=== PATIENT | male | born 1960 | race Caucasian/White ===

== ENCOUNTER 2020-03-08 09:19 | Emergency (ER) | payer BC, SELFPAY ==
[2020-03-08 09:24] VITALS: BP 113/87; PULSE 88; RESP 18; TEMP 36.8; O2SAT 98; BMI 35.7
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
[2020-03-08 10:34] LABS: Basophils % 0.5 %; Eosinophils # 0.1 10^3/uL (0.0-0.8); Eosinophils % 1.5 %; Hematocrit 39.5 % (42.0-52.0); Hemoglobin 12.9 g/dL (11.7-16.6); Lymphocytes # 1.8 10^3/uL (0.8-4.8); Lymphocytes % 27.7 %; Mean Corpuscular HGB Conc 32.7 g/dL (30.0-36.0); Mean Corpuscular Hemoglobin 30.3 pg (28.0-34.0); Mean Corpuscular Volume 92.7 fL (80-94); Mean Platelet Volume 9.5 fL (7.4-10.4); Monocytes # 0.5 10^3/uL (0.2-0.9); Monocytes % 7.6 %; Neutrophils # 4.11 10^3/uL (1.8-7.7); Neutrophils % 62.4 %; Nucleated Red Blood Cells % 0 %; Platelet Count 220 10^3/cmm (130-400); Red Blood Count 4.26 10^6/uL (4.1-5.3); Red Cell Distribution Width 12.6 % (12.1-15.1); White Blood Count 6.6 10^3/uL (4.0-10.0)
[2020-03-08 10:53] LABS: Alanine Aminotransferase 20 U/L (0-41); Alkaline Phosphatase 78 IU/L (40-130); Anion Gap 11.8 (5-19); Aspartate Amino Transferase 22 U/L (0-40); Blood Urea Nitrogen 13 mg/dL (8-23); Calcium 9.1 mg/dL (8.5-10.5); Carbon Dioxide 27 mmol/L (22-29); Chloride 101 mmol/L (98-107); Glomerular Filtration Rate 68.3 mL/min (90-130); Glucose 161 mg/dL (65-115); Osmolality Calculated 282 mOsm/kg (285-295); Potassium 3.8 mmol/L (3.5-5.1); Sodium 136 mmol/L (136-145); Total Bilirubin 0.4 mg/dL (0.15-1.2)
[2020-03-08 10:56] LABS: Add Urine Microscopic? NO
[2020-03-08 11:16] LABS: Bilirubin Urine Neg (NEGATIVE); Blood Urine Neg (Negative); Glucose Urine UA Norm (Normal); Ketones Urine Negative (Negative); Leukocyte Esterase Urine Negative (Negative); Nitrate Urine Negative (Negative); Protein Urine Neg (Negative); Urine Appearance Clear (CLEAR); Urine Color Yellow (Yellow); Urobilinogen Urine Norm (Negative); pH Urine 5 (5-7)
[2020-03-08] MEDS: iohexol 300 mg/mL 100 mL Btl IV (11:36)
[2020-03-08 13:22] VITALS: BP 145/72; PULSE 78; RESP 18; O2SAT 98
== END 2020-03-08 13:23 | disposition home or self-care (01) ==
PROVIDERS: Emergency Provider Nurse Practitioner Family; PCP Family Medicine
DX: S39.011A Strain of muscle, fascia and tendon of abdomen, initial encounter (principal); S39.013A Strain of muscle, fascia and tendon of pelvis, initial encounter; Z79.82 Long term (current) use of aspirin; I10 Essential (primary) hypertension; X50.9XXA Other and unspecified overexertion or strenuous movements or postures, initial encounter; Y93.16 Activity, rowing, canoeing, kayaking, rafting and tubing
CPT/HCPCS: 12345; 36415; 74177; 80053; 81003; 85025; 99283; Q9967

== ENCOUNTER 2021-08-14 08:16 | Emergency (ER) | payer BC, MEDICAID, SELFPAY ==
[2021-08-14] VITALS (18 sets, daily range): BP systolic 95–124; BP diastolic 50–86; PULSE 98; RESP 15–16; TEMP 37.7; O2SAT 94–98; BMI 33.5
--- NOTE | 2021-08-14 10:09 | ED_ITS ---
HPI - Nausea/Vomiting/Diarrhea General: Chief complaint: Nausea/Vomiting/Diarrhea Stated complaint: fevor, cant eat, nausia, bp is low Time Seen by Provider: 08/14/21 11:46 History of Present Illness: Patient's had a fever for the last 7 days. Did test at home for Covid 2 days ago and it was negative. Patient recently treated for epididymitis. Patient said he had had some tenderness in his testicle but it really was not bad but they went and put him on antibiotics. Patient said he has been having nausea and vomiting since placed on antibiotics. Not really been able to eat for the last few days not really drinking much. says his blood pressure has been down the last 3 days and he has not actually taken his blood pressure medication because of that. States he does not feel good. Denies any abdominal pain except from the dry heaves where his muscles are sore denies any cough shortness of breath. MD elicited complaint: nausea, vomiting and other (Fever) Pertinent past history: other (Recently treated for epididymitis) Onset (ago): day(s) Associated nausea: Yes Associated abdominal pain: Yes Location of pain: RLQ Associated symtoms: Reports nausea; Denies chest pain or headache(s) Review of Systems Const: Reports: fever(s); Denies: chills or body aches Eyes: Denies: eye discomfort ENMT: Denies: throat pain Card: Reports: dyspnea on exertion; Denies: chest pain Resp: Denies: dyspnea GI: Reports: abdominal pain, nausea and vomiting Skin/Breast: Denies: rash Neuro: Denies: headache(s) Psych: Denies: depression or suicidal ideation [facility] ED PFSH: Medical History (Updated 08/14/21 @ 14:19 by VIKA Bryson) Hypertension Trigeminal neuralgia Family History Mother Hypertension Father Cancer Denies family history of Diabetes CAD (coronary artery disease) Clotting disorder Dementia Hyperlipidemia Psychiatric illness Chronic kidney disease (CKD) Suicide Anesthesia complication Bleeding disorder Family history of premature coronary artery disease Lung disease Stroke Social History Smoking and tobacco status: never smoked Second hand smoke exposure: No Alcohol intake: never Physical Exam Const: COMMON NORMALS: no acute distress, patient oriented x3 and alert HENMT: COMMON NORMALS: normocephalic HEAD & SCALP: normocephalic Eye: COMMON NORMALS: EOMs intact bilaterally Neck/C-Spine: COMMON NORMALS: no JVD Resp: COMMON NORMALS: normal respiratory effort and No use of accessory muscles Cardio: COMMON NORMALS: no JVD GI: INSPECTION: Yes normal to inspection AUSCULTATION: Yes Hypoactive bowel sounds present PALPATION: Yes Tenderness to palpation present (GI) Details: RLQ PERCUSSION: tympanic to percussion Extremity: COMMON NORMALS: normal to inspection and full ROM Neuro: COMMON NORMALS: patient oriented x3 SENSORIUM/ORIENTATION: Yes alert Psych: COMMON NORMALS: mental status grossly normal Skin: COMMON NORMALS: no rashes or lesions noted GENERAL SKIN EXAM: no rashes or lesions noted Course Vital Signs: Vital signs: Vital Signs Temperature 100 F H 08/14/21 08:29 Pulse Rate 98 08/14/21 08:29 Respiratory Rate 15 08/14/21 08:29 Blood Pressure 124/86 08/14/21 08:29 Pulse Oximetry 95 08/14/21 08:29 MDM - Nausea/Vomiting/Diarrhea Medical Decision Making Patient diagnosed duodenitis and hyponatremia. Also had some bili in his urine. White count was normal. Creatinine was slightly high at 1.4. Patient was given IV fluids here and felt much better. Discussed case with Dr. Gutierrez and went over the labs and radiology studies. Dr. Gutierrez suggested that go ahead and give him salt tablet because of low sodium and follow-up with his provider this coming week and have repeat labs done. Patient referred Dr. Abrams for follow-up this coming week. Lab Data : 08/14/21 12:03 08/14/21 12:03 Radiology Impressions Abdomen/Pelvis CT 08/14/21 11:49 IMPRESSION: 1. The proximal duodenum appears mildly thickened and edematous suspicious for duodenitis. There is also fatty infiltration of the wall of the distal gastric antrum/pylorus suggesting recurring inflammation in this region. 2. Nonobstructing stones noted within both kidneys measuring up to 3 mm in size within the left kidney. Laboratory Results WBC 4.7 10^3/uL (4.0-10.0) 08/14/21 12:03 RBC 4.74 10^6/uL (4.1-5.3) 08/14/21 12:03 Hgb 14.5 g/dL (11.7-16.6) 08/14/21 12:03 Hct 41.6 % (42.0-52.0) L 08/14/21 12:03 MCV 87.8 fl (80-94) 08/14/21 12:03 MCH 30.6 pg (28.0-34.0) 08/14/21 12:03 MCHC 34.9 g/dL (30.0-36.0) 08/14/21 12:03 RDW 12.4 % (12.1-15.1) 08/14/21 12:03 Plt Count 214 10^3/cmm (130-400) 08/14/21 12:03 MPV 9.0 fL (7.4-10.4) 08/14/21 12:03 Neut % (Auto) 74.3 % 08/14/21 12:03 Lymph % (Auto) 15.1 % 08/14/21 12:03 [place] % (Auto) 8.7 % 08/14/21 12:03 Eos % (Auto) 0.4 % 08/14/21 12:03 Baso % (Auto) 0.4 % 08/14/21 12:03 Neut # (Auto) 3.49 10^3/uL (1.8-7.7) 08/14/21 12:03 Lymph # (Auto) 0.7 10^3/uL (0.8-4.8) L 08/14/21 12:03 [place] # (Auto) 0.4 10^3/uL (0.2-0.9) 08/14/21 12:03 Eos # (Auto) 0.0 10^3/uL (0.0-0.8) 08/14/21 12:03 Baso # (Auto) 0.0 10^3/uL (0.0-0.1) 08/14/21 12:03 Nucleated RBC % (auto) 0 % 08/14/21 12:03 Nucleated RBCs # 0.0 /100WBC 08/14/21 12:03 Sodium 122 mmol/L (136-145) L 08/14/21 12:03 Potassium 4.1 mmol/L (3.5-5.1) 08/14/21 12:03 Chloride 87 mmol/L (98-107) L 08/14/21 12:03 Carbon Dioxide 22 mmol/L (22-29) 08/14/21 12:03 Anion Gap 17.1 (5-19) 08/14/21 12:03 BUN 18 mg/dL (8-23) 08/14/21 12:03 Creatinine 1.4 mg/dL (0.7-1.2) H 08/14/21 12:03 GFR Calculation 51.5 mL/min (90-130) L 08/14/21 12:03 Glucose 114 mg/dL (65-115) 08/14/21 12:03 Calculated Osmolality 257 mOsm/kg (285-295) L 08/14/21 12:03 Calcium 8.4 mg/dL (8.5-10.5) L 08/14/21 12:03 Total Bilirubin 0.5 mg/dL (0.15-1.2) 08/14/21 12:03 AST 40 U/L (0-40) 08/14/21 12:03 ALT 49 U/L (0-41) H 08/14/21 12:03 Alkaline Phosphatase 71 IU/L (40-130) 08/14/21 12:03 Total Protein 7.3 g/dL (6.6-8.7) 08/14/21 12:03 Albumin 3.8 g/dL (3.5-5.2) 08/14/21 12:03 Globulin 3.5 g/dL (1.3-4.6) 08/14/21 12:03 Lipase 53 U/L (13-60) 08/14/21 12:03 Urine Color Yellow (Yellow) 08/14/21 13:43 Urine Appearance Clear (CLEAR) 08/14/21 13:43 Urine pH 5 (5-7) 08/14/21 13:43 Ur Specific [place] 1.015 (1.005-1.030) 08/14/21 13:43 Urine Protein Neg (Negative) 08/14/21 13:43 Urine Glucose (UA) Norm (Normal) 08/14/21 13:43 Urine Ketones 1+ (Negative) H 08/14/21 13:43 Urine Blood 2+ (Negative) H 08/14/21 13:43 Urine Nitrate Negative (Negative) 08/14/21 13:43 Urine Bilirubin 1+ (Negative) H 08/14/21 13:43 Urine Urobilinogen 1 mg/dL (Negative) H 08/14/21 13:43 Ur Leukocyte Esterase Negative (Negative) 08/14/21 13:43 Urine RBC Rare /hpf (0-2) 08/14/21 13:43 Urine WBC 0-4 /hpf (0-5) H 08/14/21 13:43 Ur Squamous Epith Cells None /hpf (0-5) 08/14/21 13:43 Amorphous Sediment Not Reportable 08/14/21 13:43 Urine Bacteria 1+ /hpf (NONE) H 08/14/21 13:43 Urine Mucus 2+ /hpf 08/14/21 13:43 SARS-CoV-2 Ag (Rapid) Negative (Negative) 08/14/21 12:33 Discharge Plan Discharge Patient Disposition: Home Clinical Impression: Duodenitis, Acute hyponatremia Condition: Stable Prescriptions: New sodium chloride 1 gram tablet 1,000 mg PO DAILY Qty: 7 0RF promethazine 12.5 mg tablet 12.5 mg PO TID PRN (Reason: nausea and vomiting) Qty: 10 0RF Rx Instructions: 3 doses during day; last dose no later than 4 hr before bedtime Prilosec OTC 20 mg tablet,delayed release (DR/EC) 20 mg PO DAILY Qty: 14 0RF No Action allopurinol 100 mg tablet 100 mg PO ONCE 0RF lisinopril 20 mg tablet 20 mg PO DAILY 0RF Aspirin Low Dose 81 mg Tablet,Delayed Release (Dr/Ec) 81 mg PO DAILY 0RF hydrochlorothiazide 12.5 mg capsule 12.5 mg PO DAILY 0RF oxycodone-acetaminophen 5-325 mg tablet 1 tab PO Q6H PRN (Reason: pain) Qty: 14 0RF Discharge Orders: Discharge ED (Routine); Ordered 08/14/21 Ordered By: Elliott Strange Referrals: Toney Abrams MD [Primary Care Provider] - Discharge Diet: As Directed Discharge Activity: Resume usual activity Patient Instructions: Hyponatremia (ED), Duodenitis (ED) Activity Restrictions/Additional Instructions: Follow-up with medical provider as directed. Take medications as prescribed. Return to the ER or your medical provider if condition worsens. Please read and understand discharge instructions. If any questions ask please. Make sure you follow-up with Dr. Abrams this week and have repeat labs done which include CBC, CMP and urinalysis. Coding Level of Care Code ED Rfid Strategist for Chg Fwd Exam Comprehensive
--- NOTE | 2021-08-14 11:49 | CTR_ITS ---
PROCEDURE INFORMATION: Exam: CT Abdomen And Pelvis With Contrast Exam date and time: 08/14/2021 11:49 AM Age: 60 years old Clinical indication: Abdominal pain; Localized; Right lower quadrant (rlq); Additional info: Rlq pain, n/v TECHNIQUE: Imaging protocol: Computed tomography of the abdomen and pelvis with contrast. Radiation optimization: All CT scans at this facility use at least one of these dose optimization techniques: automated exposure control; mA and/or kV adjustment per patient size (includes targeted exams where dose is matched to clinical indication); or iterative reconstruction. Contrast material: VISI 320; Contrast volume: 95 ml; Contrast route: INTRAVENOUS (IV); COMPARISON: CT abdomen pelvis w con* [id number] 03/08/2020 11:23 AM RADIATION DOSE METRICS: Total DLP (mGy-cm): 1839.81 FINDINGS: Liver: Normal. No mass. Gallbladder and bile ducts: Normal. No calcified stones. No ductal dilation. Pancreas: Normal. No ductal dilation. Spleen: Normal. No splenomegaly. Adrenal glands: Normal. No mass. Kidneys and ureters: 3 mm nonobstructing stone noted in the inferior pole of the left kidney. Additional punctate nonobstructing stone in the interpolar region of the left kidney. There are a couple punctate nonobstructing stones also noted in the interpolar region of the right kidney. No hydronephrosis. Stomach and bowel: The wall of the 2nd portion the duodenum appears slightly edematous and thickened with some conspicuous mucosal hyperenhancement in this region. In addition, there is fatty infiltration of the calderon of the distal gastric antrum/pylorus which is suggestive of recurring inflammation in this region. Colonic diverticulosis centered within the sigmoid and descending colon without findings of acute diverticulitis. No obstruction. Appendix: No evidence of appendicitis. Intraperitoneal space: Unremarkable. No free air. No significant fluid collection. Vasculature: Unremarkable. No abdominal aortic aneurysm. Lymph nodes: Unremarkable. No enlarged lymph nodes. Urinary bladder: Unremarkable as visualized. Reproductive: Unremarkable as visualized. Bones/joints: No acute fracture. Degenerative disc disease noted at L4-L5 and L5-S1. Soft tissues: Unremarkable. CT/CT abdomen pelvis w con* [id number] IMPRESSION: 1. The proximal duodenum appears mildly thickened and edematous suspicious for duodenitis. There is also fatty infiltration of the wall of the distal gastric antrum/pylorus suggesting recurring inflammation in this region. 2. Nonobstructing stones noted within both kidneys measuring up to 3 mm in size within the left kidney.
[2021-08-14 12:11] LABS: Basophils % 0.4 %; Eosinophils % 0.4 %; Hematocrit 41.6 % (42.0-52.0); Hemoglobin 14.5 g/dL (11.7-16.6); Lymphocytes # 0.7 10^3/uL (0.8-4.8); Lymphocytes % 15.1 %; Mean Corpuscular HGB Conc 34.9 g/dL (30.0-36.0); Mean Corpuscular Hemoglobin 30.6 pg (28.0-34.0); Mean Corpuscular Volume 87.8 fl (80-94); Monocytes # 0.4 10^3/uL (0.2-0.9); Monocytes % 8.7 %; Neutrophils # 3.49 10^3/uL (1.8-7.7); Neutrophils % 74.3 %; Nucleated Red Blood Cells % 0 %; Platelet Count 214 10^3/cmm (130-400); Red Blood Count 4.74 10^6/uL (4.1-5.3); Red Cell Distribution Width 12.4 % (12.1-15.1); White Blood Count 4.7 10^3/uL (4.0-10.0)
[2021-08-14] MEDS: sodium chloride 0.9% 1,000 ML 999 ML IV (12:17)
[2021-08-14] MEDS: acetaminophen 500 mg Tablet 1000 MG PO (12:17)
--- NOTE | 2021-08-14 12:19 | PC.NURSE ---
pt states he was started on a medication 10 days ago and has been nausated and vomiting since he started the medication. has seen pcp. pcp said everything was fine.
[2021-08-14 12:39] LABS: Alanine Aminotransferase 49 U/L (0-41); Albumin Level 3.8 g/dL (3.5-5.2); Alkaline Phosphatase 71 IU/L (40-130); Anion Gap 17.1 (5-19); Aspartate Amino Transferase 40 U/L (0-40); Blood Urea Nitrogen 18 mg/dL (8-23); Calcium 8.4 mg/dL (8.5-10.5); Carbon Dioxide 22 mmol/L (22-29); Chloride 87 mmol/L (98-107); Globulin 3.5 g/dL (1.3-4.6); Glomerular Filtration Rate 51.5 mL/min (90-130); Glucose 114 mg/dL (65-115); Lipase 53 U/L (13-60); Osmolality Calculated 257 mOsm/kg (285-295); Potassium 4.1 mmol/L (3.5-5.1); Sodium 122 mmol/L (136-145); Total Bilirubin 0.5 mg/dL (0.15-1.2); Total Protein 7.3 g/dL (6.6-8.7)
[2021-08-14 13:01] LABS: SARS Covid-2 Antigen Negative (Negative)
[2021-08-14] MEDS: iodixanol 320 mg/mL 100mL Btl IV (13:13)
[2021-08-14 14:07] LABS: Blood Urine 2+ (Negative); Glucose Urine UA Norm (Normal); Ketones Urine 1+ (Negative); Protein Urine Neg (Negative); Specific Gravity, Urine 1.015 (1.005-1.030); Urine Appearance Clear (CLEAR); Urine Color Yellow (Yellow); pH Urine 5 (5-7)
[2021-08-14 14:08] LABS: Add Urine Culture? No; Add Urine Microscopic? YES; Bacteria Urine 1+ /hpf; Bilirubin Urine 1+ (Negative); Leukocyte Esterase Urine Negative (Negative); Mucus Urine 2+ /hpf; Nitrate Urine Negative (Negative); RBC Urine RARE /hpf (0-2); Urobilinogen Urine 1 mg/dL (Negative); WBC Urine 0-4 /hpf (0-5)
== END 2021-08-14 14:59 | disposition home or self-care (01) ==
PROVIDERS: Emergency Provider Nurse Practitioner Family; PCP Family Medicine
DX: K29.80 Duodenitis without bleeding (principal); E87.1 Hypo-osmolality and hyponatremia; Z79.82 Long term (current) use of aspirin; I10 Essential (primary) hypertension
CPT/HCPCS: 36415; 74177; 80053; 81001; 83690; 85025; 87426; 96360; 99284; J7030; Q9967

== ENCOUNTER → 2022-03-09 09:36 | Outpatient (BNVA) | payer BC, MEDICAID, SELFPAY | PROVIDERS: PCP Family Medicine; Referring Provider Dermatology; Visit Provider Podiatrist Foot & Ankle Surgery | DX: M77.41 Metatarsalgia, right foot (principal); M77.42 Metatarsalgia, left foot; G62.9 Polyneuropathy, unspecified | CPT/HCPCS: 99213; 99214 ==

== ENCOUNTER 2022-08-18 12:26 | Inpatient (IN) | payer BC, SELFPAY ==
[2022-08-18] VITALS (8 sets, daily range): BP systolic 80–111; BP diastolic 45–70; PULSE 79–101; RESP 14–18; TEMP 36.9–38; O2SAT 93–98; BMI 34.9
--- NOTE | 2022-08-18 13:19 | XR_ITS ---
WS: [id number] Portable AP upright chest, 08/18/2022 Clinical Data: syncope Comparison: None. Findings: No nodules, masses or effusions are seen. The heart is normal. The pulmonary vascularity is not increased. No pneumonia or pneumothorax is seen. XR/XR chest 1V portable [id number] Impression: Negative chest.
--- NOTE | 2022-08-18 13:20 | ECG_ITS ---
[facility] Test Date: 2022-08-18 Pat Name: David Stephen Department: Room: Gender: Male [employer]: : 1960 Requested By: Sami Fleming Order Number: [id number] Sharon MD: Nahomi Rice M.D. Measurements Intervals [place] Rate: 91 P: 5 NC: 140 QRS: 75 QRSD: 95 T: 41 QT: 334 QTc: 412 Interpretive Statements SINUS RHYTHM No previous ECG available for comparison Electronically Signed On 08-18-2022 21:02:01 PAYMENT PROCESSOR by Nahomi Rice M.D. [id number]
--- NOTE | 2022-08-18 13:21 | W.ED.NAVMDI ---
HPI - Nausea/Vomiting/Diarrhea General: Chief complaint: Nausea/Vomiting/Diarrhea Stated complaint: N/V/D Time Seen by Provider: 08/18/22 13:05 Source: patient Mode of arrival: ambulatory Limitations: no limitations History of Present Illness: This patient made his way to the emergency department. He states he is feels weak and achy. He states over the past 3 days he has had multiple loose stools. Denies any blood in his stools. He states he also gags but has not had any emesis. He states the symptoms onset were felt like that he had worked all day and just had some body aches. He is unaware of any known exposure to infectious disease. No recent travel, no one else is ill at home. He has not had flu vaccine or COVID-19 vaccine but did have COVID-19 approximately 2 years ago. He denies any abdominal pain. He denies chest pain, shortness of breath, fevers. He does feel lightheaded and generally weak all over. Denies palpitations etc. He has had no significant past medical history other than he takes antihypertensive, metformin for borderline hyperglycemia. He does chew tobacco no smoking of tobacco or alcohol use. Associated nausea: Yes Associated symtoms: Reports nausea; Denies anxiety, change in vision, chest pain, headache(s), palpitations or syncope Review of Systems Const: Reports: chills and body aches; Denies: fever(s) Eyes: Denies: change in vision ENMT: Denies: throat pain, odynophagia, nasal discharge or nasal congestion Card: Reports: lightheadedness; Denies: chest pain, palpitations, irregular heart rhythm or syncope Resp: Denies: dyspnea, productive cough or non-productive cough GI: Reports: nausea and diarrhea; Denies: abdominal pain, vomiting, hematochezia or melena : Reports: oliguria; Denies: flank pain or difficulty urinating Musc: Denies: neck pain, back pain, extremity pain or extremity swelling Skin/Breast: Denies: rash Neuro: Denies: headache(s), numbness in extremities or weakness in extremities Psych: Denies: anxiety or depression PFS ED PFSH: Medical History (Updated 08/18/22 @ 14:49 by Sami Fleming DO) Hypertension Trigeminal neuralgia Family History Mother Hypertension Father Cancer Denies family history of Diabetes CAD (coronary artery disease) Clotting disorder Dementia Hyperlipidemia Psychiatric illness Chronic kidney disease (CKD) Suicide Anesthesia complication Bleeding disorder Family history of premature coronary artery disease Lung disease Stroke Social History Smoking and tobacco status: never smoked Second hand smoke exposure: No Alcohol intake: never Physical Exam Narrative: EXAM NARRATIVE: Eye contact appears to be in no acute distress and is able to answer questions appropriately. Const: COMMON NORMALS: no acute distress, patient oriented x3, healthy appearing and alert GENERAL APPEARANCE: cooperative and comfortable NUTRITIONAL APPEARANCE: overweight ORIENTATION/CONSCIOUSNESS: Yes awake HENMT: COMMON NORMALS: normocephalic, Normal nasal mucous membranes and turbinates present, moist oral mucous membranes and oropharynx normal HEAD & SCALP: normocephalic FACE & SINUS: normal facial exam NOSE: Normal nasal mucous membranes and turbinates present Eye: COMMON NORMALS: Equal, round and reactive pupils present, EOMs intact bilaterally and conjunctivae normal CONJUNCTIVA: Yes conjunctivae normal PUPIL: Yes Equal, round and reactive pupils present Neck/C-Spine: COMMON NORMALS: full ROM, no JVD and No carotid bruits Chest: COMMONS NORMALS: normal inspection of the chest and normal palpation of entire chest wall Resp: COMMON NORMALS: normal respiratory effort, No use of accessory muscles and clear to auscultation bilaterally AUSCULTATION: clear to auscultation bilaterally Cardio: COMMON NORMALS: no JVD, regular rate, regular rhythm, No murmurs present (Cardio) and Peripheral pulses 2+ throughout RATE: regular rate RHYTHM: regular rhythm PERIPHERAL PULSES: Peripheral pulses 2+ throughout GI: COMMON NORMALS: Normal to inspection, nondistended, normoactive bowel sounds present, Soft to palpation, non-tender, no masses and no bruits PALPATION: Yes Soft to palpation : COMMON NORMALS: Yes no CVA tenderness BLADDER/KIDNEY EXAM: Yes no CVA tenderness Back/Pelvis: COMMON NORMALS: no CVA tenderness, thoracic and lumbar spine normal to inspection, no thoracic nor lumbar tenderness and thoraco-lumbar ROM normal Extremity: COMMON NORMALS: normal to inspection, full ROM, capillary refill normal, no joint enlargement, no calf tenderness and no pedal edema Neuro: COMMON NORMALS: patient oriented x3, moves all extremities, no focal motor deficits and no sensory deficits noted SENSORIUM/ORIENTATION: Yes alert CRANIAL NERVES: Yes CN normal except as noted Psych: COMMON NORMALS: mental status grossly normal Skin: COMMON NORMALS: no rashes or lesions noted, no wounds, turgor normal and no jaundice GENERAL SKIN EXAM: no rashes or lesions noted and turgor normal Course Reevaluation(s): Reevaluation #1: Patient states he feels okay. No new findings on repeat examination. Is significant creatinine elevation is noted. Likely suffering AKA from volume contraction in combination with continue to take his EDUAR inhibitor and hydrochlorothiazide. We will need to continue IV hydration to help reverse his acute kidney injury. I discussed need for admission with both he and family. Time: 14:48 Consultations: Consultation #1: I discussed with department [facility] who agreed to place patient in hospital. Time: 15:05 Vital Signs: Vital signs: Vital Signs Temperature 98.9 F 08/18/22 12:34 Pulse Rate 90 08/18/22 13:54 Respiratory Rate 16 08/18/22 13:54 Blood Pressure 84/45 08/18/22 13:54 Pulse Oximetry 94 08/18/22 13:54 Oxygen Delivery Me thod 08/18/22 13:54 MDM - Nausea/Vomiting/Diarrhea Medical Decision Making This patient with a known history of hypertension on EDUAR inhibitor as well as diuretic who has been ill with multiple loose stools for the last several days with associated malaise and body aches. He is also had decreased oral intake but has continued to take his antihypertensives. He has constitutionally felt unwell is noted to have low blood pressure. Evaluation today revealed a clinically reassuring patient however he was noted to have low systolic blood pressure and subsequently was found to have elevation in his creatinine suggestive of acute kidney injury likely due to volume contraction. Urinalysis pending at time of this note but unlikely to be obstructive uropathy pyelonephritis etc. He will be placed in the hospital for continued IV hydration and monitoring serum creatinines and additional work-up as indicated. Medical Records I reviewed the patient's medical records. Previous creatinine 1 year ago was 1.4 Lab Data I reviewed the patient's lab results. 08/18/22 13:19 08/18/22 13:19 Radiology Impressions Chest X-Ray 08/18/22 13:19 Impression: Negative chest. Laboratory Results WBC 6.7 10^3/uL (4.0-10.0) 08/18/22 13:19 RBC 4.69 10^6/uL (4.1-5.3) 08/18/22 13:19 Hgb 14.2 g/dL (11.7-16.6) 08/18/22 13:19 Hct 42.3 % (42.0-52.0) 08/18/22 13:19 MCV 90.2 fl (80-94) 08/18/22 13:19 MCH 30.3 pg (28.0-34.0) 08/18/22 13:19 MCHC 33.6 g/dL (30.0-36.0) 08/18/22 13:19 RDW 13.2 % (12.1-15.1) 08/18/22 13:19 Plt Count 231 10^3/cmm (130-400) 08/18/22 13:19 MPV 10.0 fL (7.4-10.4) 08/18/22 13:19 Neut % (Auto) 69.8 % 08/18/22 13:19 Lymph % (Auto) 15.4 % 08/18/22 13:19 [place] % (Auto) 14.2 % 08/18/22 13:19 Eos % (Auto) 0.0 % 08/18/22 13:19 Baso % (Auto) 0.3 % 08/18/22 13:19 Neut # (Auto) 4.70 10^3/uL (1.8-7.7) 08/18/22 13:19 Lymph # (Auto) 1.0 10^3/uL (0.8-4.8) 08/18/22 13:19 [place] # (Auto) 1.0 10^3/uL (0.2-0.9) H 08/18/22 13:19 Eos # (Auto) 0.0 10^3/uL (0.0-0.8) 08/18/22 13:19 Baso # (Auto) 0.0 10^3/uL (0.0-0.1) 08/18/22 13:19 Nucleated RBC % (auto) 0 % 08/18/22 13:19 Nucleated RBCs # 0.0 /100WBC 08/18/22 13:19 Sodium 129 mmol/L (136-145) L 08/18/22 13:19 Potassium 3.8 mmol/L (3.5-5.1) 08/18/22 13:19 Chloride 92 mmol/L (98-107) L 08/18/22 13:19 Carbon Dioxide 20 mmol/L (22-29) L 08/18/22 13:19 Anion Gap 20.8 (5-19) H 08/18/22 13:19 BUN 38 mg/dL (8-23) H 08/18/22 13:19 Creatinine 5.6 mg/dL (0.7-1.2) H* 08/18/22 13:19 GFR Calculation 10.4 mL/min (90-130) L 08/18/22 13:19 Glucose 119 mg/dL (65-115) H 08/18/22 13:19 Calculated Osmolality 278 mOsm/kg (285-295) L 08/18/22 13:19 Calcium 9.4 mg/dL (8.5-10.5) 08/18/22 13:19 Total Bilirubin 0.4 mg/dL (0.15-1.2) 08/18/22 13:19 AST 37 U/L (0-40) 08/18/22 13:19 ALT 30 U/L (0-41) 08/18/22 13:19 Alkaline Phosphatase 62 U/L (40-130) 08/18/22 13:19 Troponin T Baseline 25 ng/L (0-15) H 08/18/22 13:19 Total Protein 7.3 g/dL (6.6-8.7) 08/18/22 13:19 Albumin 4.0 g/dL (3.5-5.2) 08/18/22 13:19 Globulin 3.3 g/dL (1.3-4.6) 08/18/22 13:19 Influenza Type A Ag negative (Negative) 08/18/22 13:29 Influenza Type B Ag negative (Negative) 08/18/22 13:29 SARS-CoV-2 Ag (Rapid) negative (Negative) 08/18/22 13:29 EKG Data EKG 1: I personally reviewed and interpreted this EKG as follows: Interpretation: EKG reveals a ventricular rate of 91 bpm. Normal [place] interval, QRS duration, corrected QT interval. Normal axis. Consistent with sinus rhythm without any acute ST-T wave changes noted at this time. Discharge Plan Discharge Patient Disposition: Admitted As Inpatient Clinical Impression: Acute kidney injury Condition: Stable Coding Level of Care Code ED [employer] Supervisor for Panchito Fwbhavin Exam Comprehensive
[2022-08-18] MEDS: sodium chloride 0.9% 1,000 ML 999 ML IV (13:27)
[2022-08-18 14:05] LABS: Basophils % 0.3 %; Hematocrit 42.3 % (42.0-52.0); Hemoglobin 14.2 g/dL (11.7-16.6); Lymphocytes % 15.4 %; Mean Corpuscular HGB Conc 33.6 g/dL (30.0-36.0); Mean Corpuscular Hemoglobin 30.3 pg (28.0-34.0); Mean Corpuscular Volume 90.2 fl (80-94); Monocytes % 14.2 %; Neutrophils % 69.8 %; Nucleated Red Blood Cells % 0 %; Platelet Count 231 10^3/cmm (130-400); Red Blood Count 4.69 10^6/uL (4.1-5.3); Red Cell Distribution Width 13.2 % (12.1-15.1); White Blood Count 6.7 10^3/uL (4.0-10.0)
[2022-08-18 14:12] LABS: Influenza A by IFA negative (Negative); Influenza B by IFA negative (Negative); SARS Covid-2 Antigen negative (Negative)
[2022-08-18 14:17] LABS: Troponin(5th) Baseline 25 ng/L (0-15)
[2022-08-18 14:19] LABS: Alanine Aminotransferase 30 U/L (0-41); Alkaline Phosphatase 62 U/L (40-130); Anion Gap 20.8 (5-19); Aspartate Amino Transferase 37 U/L (0-40); Blood Urea Nitrogen 38 mg/dL (8-23); Calcium 9.4 mg/dL (8.5-10.5); Carbon Dioxide 20 mmol/L (22-29); Chloride 92 mmol/L (98-107); Globulin 3.3 g/dL (1.3-4.6); Glomerular Filtration Rate 10.4 mL/min (90-130); Glucose 119 mg/dL (65-115); Osmolality Calculated 278 mOsm/kg (285-295); Potassium 3.8 mmol/L (3.5-5.1); Sodium 129 mmol/L (136-145); Total Bilirubin 0.4 mg/dL (0.15-1.2); Total Protein 7.3 g/dL (6.6-8.7)
[2022-08-18] MEDS: lactated ringers 1,000 ML 999 ML IV (14:56)
--- NOTE | 2022-08-18 15:03 | CT_ITS ---
WS: [id number] CT ABDOMEN AND PELVIS NONCONTRAST HISTORY: n/v TECHNIQUE: Imaging performed through the abdomen and pelvis. Coronal and sagittal reformats are submi tted. All CT scans at [facility] use at least one of these dose optimization techniques: auto mated exposure control; mA and/or kV adjustment per patient size (includes targeted exams where dose is matched to clinical indication); or iterative reconstruction. DLP: 1026.95 mGy.cm COMPARISON: 08/14/2021 Lower thorax: Lung bases are clear. Visualized heart is normal. No hiatal hernia. Liver: Normal size liver. No mass or bile duct dilatation. Gallbladder: Normal gallbladder. Pancreas: Normal size and attenuation. Normal pancreatic duct. No pancreatitis or mass. Spleen: Normal. Adrenal glands: Normal. No mass. Right kidney: Nonobstructing 2 mm calcification mid kidney. No obstruction. No perinephric stranding. Left kidney: Normal size kidney. Several nonobstructing calcifications. No hydronephrosis or perineph mc stranding. Aorta: Normal abdominal aorta, no aneurysm or atherosclerosis. No free fluid, intraperitoneal air or significant lymphadenopathy. GI tract: Normal stomach. No small bowel obstruction. Mild new acute inflammatory process in the RIGH T lower quadrant. There is new submucosal edema in the cecum. The appendix is encased by inflammation . The appendix is normal on a prior CT 08/14/2021. This is not a typical appearance for appendicitis b ut more likely colitis. The appendix may be secondarily involved as it extends through the inflammato ry process. Mild pericecal stranding and edema. There are a few small mesenteric lymph nodes. There i s additional mild wall thickening with pericolonic inflammation involving the sigmoid. Abdominal wall: Negative. No hernia. Pelvis: Normal. Osseous structures: Unremarkable. CT/CT abdomen pelvis wo con [id number] IMPRESSION: 1. Acute inflammatory process in the RIGHT lower quadrant involving the cecum and the appendix. There is mild pericecal inflammatory stranding and submucosal edema. The appendix as seen on a prior examination from 08/14/2021 extends thro ugh this inflammatory process. Mild focal colitis. Secondary appendicitis shoul d be considered. Additional mild colonic wall thickening and pericolonic inflam mation to the sigmoid. Consider follow-up colonoscopy is patient's acute illnes s improves. Suspect colitis as the most likely etiology. 2. No renal obstruction. 3. Nonobstructing bilateral renal calculi.
--- NOTE | 2022-08-18 15:40 | ECG_ITS ---
[facility] Test Date: 2022-08-18 Pat Name: David Stephen Department: Room: Gender: Male [employer]: : 1960 Requested By: Sami Fleming Order Number: [id number] Sharon MD: Nahomi Rice M.D. Measurements Intervals [place] Rate: 89 P: 27 AK: 164 QRS: 75 QRSD: 105 T: 59 QT: 353 QTc: 429 Interpretive Statements SINUS RHYTHM Compared to ECG 08/18/2022 13:31:47 No significant changes Electronically Signed On 08-18-2022 21:07:55 PHYSICAL THERAPY COORDINATOR by Nahomi Rice M.D. [id number]
[2022-08-18 15:52] LABS: Add Urine Microscopic? YES; Bilirubin Urine 1+ (Negative); Blood Urine 2+ (Negative); Glucose Urine UA Trace (Normal); Ketones Urine 1+ (Negative); Leukocyte Esterase Urine Trace (Negative); Nitrate Urine Positive (Negative); Protein Urine 2+ (Negative); Urine Appearance Cloudy (CLEAR); Urine Color Yellow (Yellow); Urobilinogen Urine Neg (Negative); pH Urine 5 (5-7)
[2022-08-18 15:53] LABS: Add Urine Culture? Yes; Bacteria Urine 2+ /hpf; Squamous Epithelial Cell Urine 0-4 /hpf (0-5); Transitional Epi Cells Urine 0-4 /hpf
--- NOTE | 2022-08-18 16:02 | PM.HP ---
Providers/Chief Complaint Admitting Physician: Sachin Sierra MD Primary Care Provider: Toney Abrams MD Chief Complaint: N/V/D History of Present Illness David Stephen is a 61 year old male with a proximal history of chronic kidney disease, stage unknown, hypertension, hyperlipidemia, type 2 diabetes mellitus, [id number], no recent medication changes, history of nephrolithiasis, who presents to [facility] due to fatigue, malaise since Monday with diarrhea, nausea, poor appetite, dizziness. Patient tells me that his symptoms really started on Monday, with not feeling well, fatigue, malaise he was moving [place] with his and just felt fatigued and tired and was not able to come pleat his tasks, he started to develop profuse watery diarrhea, no bloody or black stools, felt nauseous poor appetite. He tells that that the diarrhea was profuse, watery no recent antibiotic use, no bloody or black stools he drinks city water and well water. No recent history of food poisoning, no raw meat, no let us. He tells me that his symptoms then progressed to poor appetite persistent diarrhea persistent nausea fatigue, malaise, dizziness. No fevers, no chills, no flank pain, does have some back pain, no chest pain, no palpitations, today he notices that he was not urinating Review of Systems Const: Denies: fever(s) or chills Eyes: Denies: change in vision ENMT: Denies: nasal congestion Card: Reports: lightheadedness and pre-syncope; Denies: chest pain, palpitations, swelling of feet/ankles or dyspnea on exertion Resp: Denies: dyspnea, productive cough, non-productive cough or wheezing GI: Reports: nausea; Denies: abdominal pain, hematemesis, hematochezia or melena : Denies: flank pain, difficulty urinating, dysuria or urinary frequency Musc: Reports: back pain; Denies: neck pain or extremity pain Skin/Breast: Denies: rash Neuro: Reports: weakness in extremities and dizziness; Denies: headache(s), lack of coordination, difficulty walking or vertigo Psych: Denies: anxiety Endo: Denies: polyuria or polydipsia Medications/Allergies Home Medications Medication Instructions Recorded Confirmed Last Taken Type allopurinol 100 mg tablet 200 mg PO BEDTIME 07/25/19 08/18/22 08/17/22 History 100 mg aspirin 81 mg tablet,delayed 81 mg PO BEDTIME 03/08/20 08/18/22 08/17/22 History release (Braxton Low Dose Aspirin) hydrochlorothiazide 12.5 mg capsule 12.5 mg PO QAM 08/18/22 08/18/22 08/17/22 History lisinopril 40 mg tablet 40 mg PO BEDTIME 08/18/22 08/18/22 08/17/22 History lovastatin 20 mg tablet 20 mg PO BEDTIME 08/18/22 08/18/22 08/17/22 History meloxicam 15 mg tablet 15 mg PO DAILY PRN Pain 08/18/22 08/18/22 07/13/22 History metformin 750 mg tablet,extended 750 mg PO BEDTIME 08/18/22 08/18/22 08/17/22 History release 24 hr tramadol 50 mg tablet 50 mg PO Q6H PRN Pain 08/18/22 08/18/22 Unknown History Allergies Allergy/AdvReac Type Severity Reaction Status Date / Time niacin Allergy ALGY-Chills Verified 08/18/22 14:12 PFSH Acute PFSH: Medical History (Updated 08/18/22 @ 16:22 by Sachin Sierra MD) Hypertension Non-insulin dependent type 2 diabetes mellitus Trigeminal neuralgia Surgical History (Updated 08/18/22 @ 16:06 by Sachin Sierra MD) H/O right knee surgery Family History Mother Hypertension Father Cancer Denies family history of Diabetes CAD (coronary artery disease) Clotting disorder Dementia Hyperlipidemia Psychiatric illness Chronic kidney disease (CKD) Suicide Anesthesia complication Bleeding disorder Family history of premature coronary artery disease Lung disease Stroke Social History Smoking and tobacco status: never smoked Second hand smoke exposure: No Alcohol intake: never Vitals/I&O/Wt Last Vital Signs Temp 98.9 F 08/18/22 12:34 Pulse 85 08/18/22 15:58 Resp 16 08/18/22 15:58 BP 107/70 08/18/22 15:58 Pulse Ox 98 08/18/22 15:58 O2 Del Method 08/18/22 15:58 08/18/22 08/18/22 08/18/22 06:59 14:59 22:59 Intake Total 1000 / 1000 Balance 1000 / 1000 Weight last 48 hrs Weight 104.326 kg Physical Exam Const: COMMON NORMALS: no acute distress and patient oriented x3 HENMT: COMMON NORMALS: normocephalic HEAD & SCALP: normocephalic Eye: COMMON NORMALS: Equal, round and reactive pupils present and EOMs intact bilaterally Neck/C-Spine: COMMON NORMALS: no JVD Lymph: LYMPHATIC: no lymphadenopathy noted Chest: COMMONS NORMALS: normal inspection of the chest Resp: COMMON NORMALS: normal respiratory effort, No retractions, No use of accessory muscles and clear to auscultation bilaterally AUSCULTATION: clear to auscultation bilaterally Cardio: COMMON NORMALS: regular rate, regular rhythm, S1 normal heart sound present and S2 normal heart sound present RATE: regular rate RHYTHM: regular rhythm HEART SOUNDS: S1 normal heart sound present and S2 normal heart sound present GI: COMMON NORMALS: Normal to inspection, nondistended, normoactive bowel sounds present, Soft to palpation, non-tender, no masses and no bruits PALPATION: Yes Soft to palpation and Yes No hepatosplenomegaly present : COMMON NORMALS: Yes no CVA tenderness Back/Pelvis: LUMBAR SPINE/LOWER BACK: Yes normal to inspection, Yes lumbar ROM normal and No lumbar spinal tenderness Extremity: COMMON NORMALS: no calf tenderness and no pedal edema Neuro: COMMON NORMALS: patient oriented x3, CN's II-XII intact bilaterally, moves all extremities, no focal motor deficits and gait normal Psych: COMMON NORMALS: mental status grossly normal Urinary Catheter Management: 2-way Urethral: Cath Placed During This Visit: yes Urinary Catheter Date of Insertion: 08/18/22 Urinary Catheter Time of Insertion: 15:50 Data 08/18/22 13:19 08/18/22 13:19 A&P Assessment and plan (1) H/O right knee surgery: (2) Obesity: (3) Hypertension: (4) Goals of care, counseling/discussion: (5) Acute kidney injury: (6) Urinary tract infection: (7) Colitis: (8) Chronic kidney disease: (9) Non-insulin dependent type 2 diabetes mellitus: (10) Dehydration: (11) Hypotension: (12) Diarrhea: (13) Metabolic acidosis: Plan Acute renal failure -Likely secondary to dehydration -Has evidence of UTI -We will do sepsis markers CRP and Pro-Zhen lactic acid -CT scan no obstructive uropathy -CPK, ESR, A1c, light chains, lactic acid TSH, uric acid, urine cultures, blood cultures -Place Tafoya catheter -IV fluids -Consult nephrology Hypotension responsive to fluids -Likely secondary dehydration acute renal failure -Possibly secondary UTI, lactic acid pending Metabolic acidosis secondary acute renal failure IV fluids Hyponatremia, IV fluids UTI continue Cipro Hypertension hold blood pressure medications Type 2 diabetes mellitus low-dose sliding scale, A1c Colitis versus appendicitis 1.? Acute inflammatory process in the RIGHT lower quadrant involving the cecum and the appendix. There is mild pericecal inflammatory stranding and submucosal edema. The appendix as seen on a prior examination from 08/14/2021 extends through this inflammatory process. Mild focal colitis. Secondary appendicitis should be considered. Additional mild colonic wall thickening and pericolonic inflammation to the sigmoid. Consider follow-up colonoscopy is patient's acute illness improves. Suspect colitis as the most likely etiology. -Continues to have diarrhea, sounds infectious, more like colitis -Abdomen, nontender, no guarding, no rigidity -Lipase ordered, stool studies, -Cipro and Flagyl -surgery consulted by ER for concerns for possible appendicitis -Keep n.p.o. for now -Stool studies Diarrhea, stool studies Goals of care discussion full code Heparin for DVT prophylaxis Attestations Medical Necessity Statement*: Patient requires hospitalization for acute renal failure, acute kidney injury, dehydration, uremia, hyponatremia, shock, low blood pressures, nausea, intractable nausea, colitis versus appendicitis Coding Level of Care Code Acute Code for Chg Fwd Diagnoses H/O right knee surgery Z98.890 Obesity E66.9 Hypertension I10 Goals of care, counseling/discussion Z71.89 Acute kidney injury N17.9 Urinary tract infection N39.0 Colitis K52.9 Chronic kidney disease N18.9 Non-insulin dependent type 2 diabetes mellitus E11.9 Dehydration E86.0 Hypotension I95.9 Diarrhea R19.7 Metabolic acidosis E87.20
[2022-08-18 16:14] LABS: Lactic Sepsis W/Reflex 1.1 mmol/L (0.5-2.2)
[2022-08-18 16:19] LABS: Erythrocyte Sedimentation Rate 25 mm/hr (0-10)
--- NOTE | 2022-08-18 16:23 | P.CONIM_ITS ---
Providers/Reason For Consult Consulting Physician/Specialty*: loulou melo md/ telenephrology Reason for Consult*: XAVIER, hyperkalemia Requesting Physician: Dr Sachin Sierra Attending Physician: Sachin Sierra MD Primary Care Provider: Tonye Abrams MD History of Present Illness History of Present Illness David Stephen is a 61 year old male h/o HTN, hyperlipidemia, type 2 DM, nephrolithiasis. Pt had a cr of 1.4 in jul 2021. Pt here w/ fatigue, weakness, diffuse diarrhea, nausea, poor appetite, and dizziness. He has decreased urine output. Review of Systems Narrative: weakness, diarrhea, dec urine output, nausea, lightheaded Medications/Allergies Home Medications Medication Instructions Recorded Confirmed Last Taken Type allopurinol 100 mg tablet 200 mg PO BEDTIME 07/25/19 08/18/22 08/17/22 History 100 mg aspirin 81 mg tablet,delayed 81 mg PO BEDTIME 03/08/20 08/18/22 08/17/22 History release (Braxton Low Dose Aspirin) hydrochlorothiazide 12.5 mg capsule 12.5 mg PO QAM 08/18/22 08/18/22 08/17/22 History lisinopril 40 mg tablet 40 mg PO BEDTIME 08/18/22 08/18/22 08/17/22 History lovastatin 20 mg tablet 20 mg PO BEDTIME 08/18/22 08/18/22 08/17/22 History meloxicam 15 mg tablet 15 mg PO DAILY PRN Pain 08/18/22 08/18/22 07/13/22 History metformin 750 mg tablet,extended 750 mg PO BEDTIME 08/18/22 08/18/22 08/17/22 History release 24 hr tramadol 50 mg tablet 50 mg PO Q6H PRN Pain 08/18/22 08/18/22 Unknown History Allergies Allergy/AdvReac Type Severity Reaction Status Date / Time niacin Allergy ALGY-Chills Verified 08/18/22 14:12 PFSH Acute PFSH: Medical History (Updated 08/18/22 @ 16:22 by Sachin Sierra MD) Hypertension Non-insulin dependent type 2 diabetes mellitus Trigeminal neuralgia Surgical History (Updated 08/18/22 @ 16:06 by Sachin Sierra MD) H/O right knee surgery Family History Mother Hypertension Father Cancer Denies family history of Diabetes CAD (coronary artery disease) Clotting disorder Dementia Hyperlipidemia Psychiatric illness Chronic kidney disease (CKD) Suicide Anesthesia complication Bleeding disorder Family history of premature coronary artery disease Lung disease Stroke Social History Smoking and tobacco status: never smoked Second hand smoke exposure: No Alcohol intake: never Vitals/I&O/Wt Last Vital Signs Temp 98.9 F 08/18/22 12:34 Pulse 85 08/18/22 15:58 Resp 16 08/18/22 15:58 BP 107/70 08/18/22 15:58 Pulse Ox 98 08/18/22 15:58 O2 Del Method 08/18/22 15:58 08/18/22 08/18/22 08/18/22 06:59 14:59 22:59 Intake Total 1000 / 1000 Balance 1000 / 1000 Weight last 48 hrs Weight 104.326 kg Physical Exam Narrative: NARD, obese in bed VS noted heent- nc/at, eomi neck no jvp lung clear b/l heart reg, no rub abd soft, RLQ Tender, +BS ext no edema neuro a,a, o x 3 Urinary Catheter Management: 2-way Urethral: Cath Placed During This Visit: yes Urinary Catheter Date of Insertion: 08/18/22 Urinary Catheter Time of Insertion: 15:50 Data 08/18/22 13:19 08/18/22 13:19 A&P Assessment and plan (1) Acute kidney injury: 61 year old man w/ diarrhea and likely colitis. 1. CKD- baseline cr 1.4 mg/dl in 2021- would be CKD stage 3a 2. XAVIER- Likely from hctz, luna-i and question of Meloxicam use -no hydronephrosis on ct scan -u/a cloudy, 2+ protein, 1+ ketone, 2+ blood, positive nitrite, trace LE, 2+ bacteria -hold hctz, metformin, luna-i, and NSAIDs -give ivf -monitor chemistries and uop 3. hyponatremia- check ur electrolytes and cr -check tsh and cortisol -likely prerenal and from hctz 4. inc AGMA of 17 from XAVIER. nomal lactate of 1.1urine ketones 1+is likely starvation acidosis. pt denies using SGLT2-inhibitors -monitor w/ ivf 5. DM care per medicine 6. bp low hold meds 7. colitis- renal dose abx. await surgical eval. discussed w/ DR Sierra and w/ pt seen and examined w/ RN- telehealth visit informed consent for telehealth obtained from pt time spent 50 min Plan as above Consult Attestations Medical Necessity Statement: xavier, hyperkalemia, hyponatremia, met acidosis, colitis Time Spent in Patient Care: Greater than 35 minutes (>than 50% of time spent in counselling and/or direct pt care on unit) . Coding Level of Care Code Acute Code for g Fwd Diagnoses Acute kidney injury N17.9
--- NOTE | 2022-08-18 16:47 | P.CONIM_ITS ---
Providers/Reason For Consult Consulting Physician/Specialty*: ER physician Reason for Consult*: Abnormal abdominal CT scan Attending Physician: Sachin Sierra MD Primary Care Provider: Toney Abrams MD History of Present Illness History of Present Illness David Stephen is a 61 year old male with a 5-day history of diarrhea. The patient has increasing weakness today. He has had some fever and chills. The patient did not take his temperature. Nobody else is sick at home. The patient has not had any recent travel. The patient's had greater than 10 loose bowel movements a day. The patient has not had any vomiting. He has been nauseated. The patient denies abdominal pain. Review of Systems General: Reports: 10 or more systems reviewed and unremarkable except in HPI and below Medications/Allergies Home Medications Medication Instructions Recorded Confirmed Last Taken Type allopurinol 100 mg tablet 200 mg PO BEDTIME 07/25/19 08/18/22 08/17/22 History 100 mg aspirin 81 mg tablet,delayed 81 mg PO BEDTIME 03/08/20 08/18/22 08/17/22 History release (Braxton Low Dose Aspirin) hydrochlorothiazide 12.5 mg capsule 12.5 mg PO QAM 08/18/22 08/18/22 08/17/22 History lisinopril 40 mg tablet 40 mg PO BEDTIME 08/18/22 08/18/22 08/17/22 History lovastatin 20 mg tablet 20 mg PO BEDTIME 08/18/22 08/18/22 08/17/22 History meloxicam 15 mg tablet 15 mg PO DAILY PRN Pain 08/18/22 08/18/22 07/13/22 History metformin 750 mg tablet,extended 750 mg PO BEDTIME 08/18/22 08/18/22 08/17/22 History release 24 hr tramadol 50 mg tablet 50 mg PO Q6H PRN Pain 08/18/22 08/18/22 Unknown History Allergies Allergy/AdvReac Type Severity Reaction Status Date / Time niacin Allergy ALGY-Chills Verified 08/18/22 14:12 PFSH Acute PFSH: Medical History Hypertension Non-insulin dependent type 2 diabetes mellitus Trigeminal neuralgia Surgical History H/O right knee surgery Family History Mother Hypertension Father Cancer Denies family history of Diabetes CAD (coronary artery disease) Clotting disorder Dementia Hyperlipidemia Psychiatric illness Chronic kidney disease (CKD) Suicide Anesthesia complication Bleeding disorder Family history of premature coronary artery disease Lung disease Stroke Social History Smoking and tobacco status: never smoked Second hand smoke exposure: No Alcohol intake: never Vitals/I&O/Wt Last Vital Signs Temp 98.9 F 08/18/22 12:34 Pulse 85 08/18/22 15:58 Resp 16 08/18/22 15:58 BP 107/70 08/18/22 15:58 Pulse Ox 98 08/18/22 15:58 O2 Del Method 08/18/22 15:58 08/18/22 08/18/22 08/18/22 06:59 14:59 22:59 Intake Total 1000 / 1000 Balance 1000 / 1000 Weight last 48 hrs Weight 230 lb Physical Exam Narrative: General: No acute distress, morbidly obese HEENT: normocephalic atraumatic, pupils equal round reactive to light. Oral and nasal passages are clear. Neck: The patient has no adenopathy. The patient's trachea is midline. There is no thyromegaly. There are no thyroid masses that I can appreciate. Lungs: Clear to auscultation and percussion. Heart: Regular rate and rhythm without murmurs. There is no S3 or S4 that I can appreciate. There is no rubs clicks or JVD noted. Abdomen: Somewhat obese, nontender. No masses that I can appreciate. There is no hepatosplenomegaly. There are no hernias that I can appreciate. The patient has normal active bowel sounds. There is no rushes or tinkles. The patient's bowel sounds may be slightly hyperactive. Pelvis: Stable both AP and medial compression Extremities: There is no obvious deformities or point tenderness suggestive of fracture. Patient has a well-healed right knee scar. The patient has good dorsalis pedis and radial pulses bilaterally Neurologic: The patient is awake, alert, oriented x3. The patient's Breeding Coma Scale is 15. Patient moves all 4 extremities without difficulty. The patient sensations intact to light touch throughout. Urinary Catheter Management: 2-way Urethral: Cath Placed During This Visit: yes Urinary Catheter Date of Insertion: 08/18/22 Urinary Catheter Time of Insertion: 15:50 Data 08/18/22 13:19 08/18/22 13:19 Attestation for Other Data: I personally reviewed and interpreted the following: Other data: I have reviewed the patient's chemistries/CBC as well as the CT scan of the abdomen and pelvis. A&P Assessment and plan (1) Diarrhea: I agree with admission and hydration. (2) Hypotension: I agree with hydration. (3) Metabolic acidosis: Patient's metabolic acidosis should be corrected with appropriate fluid resuscitation. (4) Colitis: We will start the patient on Zosyn for colitis. Patient also appears to have her urinary tract infection/pyelonephritis. Zosyn should help take care of this. Of course would panculture the patient. Thank you for this consult. I do not believe that this patient requires surgical intervention at this time. The patient's abdomen is benign. Please reconsult for questions or concerns. (5) Urinary tract infection: The patient probably benefit from broad-spectrum antibiotics. Coding Level of Care Code 24787 Diagnoses Diarrhea R19.7 Hypotension I95.9 Metabolic acidosis E87.20 Colitis K52.9 Urinary tract infection N39.0
[2022-08-18 17:07] LABS: INR 1.14 (0.8-1.2)
[2022-08-18] MEDS: pantoprazole 40 mg SDV IVP (17:20)
[2022-08-18] MEDS: sodium chloride 0.9% 1,000 ML 150 ML IV ×2 (17:21→23:31)
[2022-08-18] MEDS: piperacillin-tazobactam 3.375 GM in sodium chloride 0.9% (plus) 50 ML IV (17:21)
[2022-08-18 17:48] LABS: Procalcitonin 1.51 ng/mL (0-0.5); Thyroid Stimulating Hormone 0.95 uIU/mL (0.27-4.20)
[2022-08-18 17:55] LABS: ABG PCO2 33.5 mmHg (35-45); ABG PH Result 7.38 (7.35-7.45); Arterial Blood Gas Hematocrit 38.4 % (42-52); Base Excess ABG -4.5 mmol/L (-2.0-2.0); Blood Gas Allen Test Pos; Blood Gas Sample Site Radial, left; Blood Gas Sample Type Arterial; HCO3 ABG 19.8 mmol/L (22-26); Oxygen Device ROOM AIR; PO2 ABG 62.7 mmHg (80.0-100.0)
[2022-08-18 17:56] LABS: Glucose Point of Care 112 mg/dL (70-110)
[2022-08-18 18:08] LABS: Troponin 5 2HR 18.15 ng/L (0-15); Troponin 5 2HR Delta -6.85 ABS# (0-10)
[2022-08-18 18:22] LABS: Chol HDL Ratio 5.38 mg/dL (1.0-5.00); Cholesterol 113 mg/dL (0-200); Creatine Phosphokinase 129 U/L (39-308); HDL Cholesterol 21 mg/dL (60-100); LDL Cholesterol Calculated 49 mg/dL (50-129); LDL HDL Ratio 2.33 RATIO (0.00-3.22); Lipase 43 U/L (13-60); Magnesium 1.9 mg/dL (1.7-2.3); Triglycerides 216 mg/dL (0-150); Uric Acid 10.7 mg/dL (3.4-7.0)
[2022-08-18 18:49] LABS: Potassium, Radom Urine 22 mmol/L; Urine Creatinine 272 mg/dL (39-259); Urine Protein Random 59 mg/dL; Urine Random Chloride 33 mmol/L; Urine Random Sodium 77 mmol/L
--- NOTE | 2022-08-18 19:20 | ECG_ITS ---
[facility] Test Date: 2022-08-18 Pat Name: David Stephen Department: Room: 277 Gender: Male Engineering Scientist: : 1960 Requested By: Sami Fleming Order Number: [id number] Sharon MD: Nahomi Rice M.D. Measurements Intervals [place] Rate: 83 P: 21 MI: 156 QRS: 79 QRSD: 104 T: 51 QT: 368 QTc: 433 Interpretive Statements SINUS RHYTHM Compared to ECG 08/18/2022 15:40:20 No significant changes Electronically Signed On 08-18-2022 21:03:53 [employer]ING [employer]SEM[employer] by Nahomi Rice M.D. [id number]
[2022-08-18 19:31] LABS: Estmated Average Glucose 143; Hemoglobin A1C 6.6 % (4.0-6.0)
[2022-08-18 20:31] LABS: Troponin 5 6HR 16.49 ng/L (0-15)
[2022-08-18 20:32] LABS: Troponin 5 6HR Delta -8.51 ng/L (0-12)
[2022-08-18 21:19] LABS: Glucose Point of Care 98 mg/dL (70-110)
[2022-08-18] MEDS: atorvastatin 40 mg Tablet 20 MG PO (21:26)
[2022-08-18] MEDS: aspirin 81 mg EC Tablet PO (21:26)
[2022-08-18] MEDS: allopurinol 100 mg Tablet 200 MG PO (21:26)
[2022-08-19] VITALS (8 sets, daily range): BP systolic 101–113; BP diastolic 56–71; PULSE 73–80; RESP 15–20; TEMP 36.8–37.6; O2SAT 92–97
[2022-08-19] MEDS: sodium chloride 0.9% 500 ML IV (00:12)
[2022-08-19] MEDS: pantoprazole 40 mg SDV IVP (04:19)
[2022-08-19] MEDS: piperacillin-tazobactam 3.375 GM in sodium chloride 0.9% (plus) 50 ML IV ×3 (04:20→21:04)
[2022-08-19] MEDS: sodium chloride 0.9% 1,000 ML 150 ML IV ×3 (04:20→18:11)
[2022-08-19 06:03] LABS: Basophils % 0.3 %; Eosinophils % 0.2 %; Hematocrit 34.5 % (42.0-52.0); Hemoglobin 11.4 g/dL (11.7-16.6); Lymphocytes # 1.3 10^3/uL (0.8-4.8); Lymphocytes % 21.3 %; Mean Corpuscular Hemoglobin 30.5 pg (28.0-34.0); Mean Corpuscular Volume 92.2 fl (80-94); Mean Platelet Volume 9.7 fL (7.4-10.4); Monocytes % 17.1 %; Neutrophils # 3.68 10^3/uL (1.8-7.7); Neutrophils % 60.6 %; Nucleated Red Blood Cells % 0 %; Platelet Count 174 10^3/cmm (130-400); Red Blood Count 3.74 10^6/uL (4.1-5.3); Red Cell Distribution Width 13.2 % (12.1-15.1); White Blood Count 6.1 10^3/uL (4.0-10.0)
[2022-08-19 06:05] LABS: Glucose Point of Care 97 mg/dL (70-110)
[2022-08-19 06:25] LABS: Alanine Aminotransferase 22 U/L (0-41); Alkaline Phosphatase 48 U/L (40-130); Aspartate Amino Transferase 25 U/L (0-40); Blood Urea Nitrogen 39 mg/dL (8-23); Calcium 8.4 mg/dL (8.5-10.5); Carbon Dioxide 19 mmol/L (22-29); Chloride 101 mmol/L (98-107); Globulin 2.7 g/dL (1.3-4.6); Glomerular Filtration Rate 15.3 mL/min (90-130); Glucose 100 mg/dL (65-115); Magnesium 1.9 mg/dL (1.7-2.3); Osmolality Calculated 287 mOsm/kg (285-295); Phosphorus 3.7 mg/dL (2.5-4.5); Sodium 134 mmol/L (136-145); Total Bilirubin 0.3 mg/dL (0.15-1.2); Total Protein 5.7 g/dL (6.6-8.7)
[2022-08-19 06:32] LABS: Anion Gap 17.5 (5-19); Potassium 3.5 mmol/L (3.5-5.1)
[2022-08-19 06:39] LABS: 25 Hydroxy Vitamin D 27 ng/mL (30-100)
[2022-08-19 11:02] LABS: Glucose Point of Care 94 mg/dL (70-110)
--- NOTE | 2022-08-19 11:49 | PC.CHAP ---
Pastoral Care Encounter/Spiritual Assessment Type of Contact [] Declined special crimes investigator visit [] Patient/Family/Request visit [] Outpatient visit [] Follow-up visit [] Physician referral [] Code/Alert [x] Routine visit [] Staff referral [] Actively dying [] Patient sleeping [x] Family support [] [] Out of room [] Palliative care [] [] Receiving care in room [] Pre-surgical visit [] Trauma [] Long length of stay [] ICU visit [] Other: Relational/Emotional Strength [x] Patient feels connected with others/family/visitors/staff [] Distress [] Loneliness/isolation [] Abandonment Spirituality of Patient [x] Person of Edith [] Attends Protestant of their Edith [x] Believes in Prayer [] Reads Bible or Christian materials [] There are Spiritual issues to be addressed [employer] Interventions [x] Prayer [] Active listening [] Non-anxious presence [] Spiritual/emotional support [] Crisis/trauma care [] Spiritual counseling [] Bereavement support [] Provided bereavement packet [] Provided Bible/devotional materials [] Provided toy/stuffed animal, coloring book to patient or family member [] Provided Communion [] Anointing/[place] [] Salvation [] Completed spiritual assessment [] Other: Impact on Illness or Injury [] Angry [] Fearful [] Anxious [] Often cries [] Exhaustion [] Unable to work [] Unable to attend mormon [] Unable to walk/stand [] Unable to read [] Unable to drive [] Unable to eat/drink [] Unable to sleep [] Unable to be with family [] Patient intubated [] Other: Summary Time spent with patient 10 min
--- NOTE | 2022-08-19 12:11 | PM.PN ---
Subjective Subjective: Today he is doing all right. Would like to try some clear liquids cautiously. Denies abdominal pain. No vomiting. Some diarrhea still ongoing. Overnight hypotensive, required a fluid bolus. Continues on IV fluids. States he continue taking his blood pressure medications even after he got ill. Overall wonders whether he needs to be on all the blood pressure medications given he has been trying and succeeded in losing some weight. Vitals/I&O/Wt Last Vital Signs Temp 98.2 F 08/19/22 08:00 Pulse 78 08/19/22 11:58 Resp 16 08/19/22 11:58 BP 112/69 08/19/22 11:58 Pulse Ox 94 08/19/22 11:58 O2 Del Method 08/19/22 11:58 08/18/22 08/19/22 08/19/22 22:59 06:59 14:59 Intake Total 1049 / 2049 2147.5 / 4197.5 1050 / 1050 Output Total 300 / 300 500 / 800 Balance 750 / 1750 1647.5 / 3397.5 1050 / 1050 Weight last 48 hrs Weight 104.326 kg Physical Exam Const: COMMON NORMALS: patient oriented x3 and alert GENERAL APPEARANCE: cooperative NUTRITIONAL APPEARANCE: overweight ORIENTATION/CONSCIOUSNESS: Yes awake HENMT: COMMON NORMALS: oropharynx normal Neck/C-Spine: COMMON NORMALS: no JVD Resp: COMMON NORMALS: normal respiratory effort and clear to auscultation bilaterally AUSCULTATION: clear to auscultation bilaterally Cardio: COMMON NORMALS: no JVD, regular rhythm, S1 normal heart sound present, S2 normal heart sound present and No murmurs present (Cardio) RHYTHM: regular rhythm HEART SOUNDS: S1 normal heart sound present and S2 normal heart sound present GI: COMMON NORMALS: Normal to inspection, nondistended, normoactive bowel sounds present, Soft to palpation and non-tender PALPATION: Yes Soft to palpation Extremity: COMMON NORMALS: no joint enlargement and no pedal edema Neuro: COMMON NORMALS: patient oriented x3 and moves all extremities SENSORIUM/ORIENTATION: Yes alert Skin: COMMON NORMALS: no rashes or lesions noted GENERAL SKIN EXAM: no rashes or lesions noted Urinary Catheter Management: 2-way Urethral: Cath Placed During This Visit: yes Reason for Continuing Indwelling Catheter: Accurate Measurement of Urinary Output in Critically Ill Patients Urinary Catheter Date of Insertion: 08/18/22 Urinary Catheter Time of Insertion: 15:50 Data 08/19/22 05:43 08/19/22 05:43 Micro: Microbiology 08/18/22 15:15 Urine Culture - Preliminary Urine,Clean Catch 08/18/22 23:45 Stool Lactoferrin - Final Stool C.difficile Toxin B Gene (PCR) - Final Occult Blood (FIT) - Final 08/18/22 16:37 Blood Culture - Preliminary Blood SPECIMEN COLLECTED 08/18/22 16:36 Blood Culture - Preliminary Blood SPECIMEN COLLECTED A&P Assessment and plan (1) Hypotension: Combination of hypovolemia with dehydration with diarrhea from colitis, as well as likely also supratherapeutic antihypertensives with medication toxicity in setting of XAVIER. Required bolus overnight due to hypotension. Continue to withhold antihypertensives. Continue IV fluid infusion for now. Monitor blood pressure. Monitor on telemetry. Reassess renal function in the morning. (2) Acute kidney injury: Reassess renal function after hypotension, continue to treat hyperkalemia, continue to withhold NSAIDs. Appreciate nephrology recommendations. It has been discussed with him to not restart NSAIDs. Continue to hold lisinopril. Continue Tafoya for accurate LUISA. (3) Colitis: Colitis with stool WBC, occult positive. Negative C. difficile. Pending other stool studies. Follow-up. Still some ongoing diarrhea. No abdominal pain. Continue Cipro and Zosyn. He wants to try clear liquids. Continue IV fluid infusion. Surgical assessment appreciated, low likelihood of appendicitis. (4) Dehydration: Continue IV fluid. (5) Urinary tract infection: Continue as above on Cipro, Zosyn. Follow-up urine culture. (6) Diarrhea: (7) H/O right knee surgery: (8) Obesity: (9) Hypertension: (10) Goals of care, counseling/discussion: (11) Chronic kidney disease: (12) Non-insulin dependent type 2 diabetes mellitus: (13) Metabolic acidosis: With some improvement in anion gap down to 17.5. Persistent low bicarb at 19. Continue treatment of colitis. Some improvement in diarrhea. Partial also possibly from XAVIER. Plan Hyponatremia, hypovolemic hyponatremia, improving with rehydration. Hypertension hold blood pressure medications Type 2 diabetes mellitus low-dose sliding scale, A1c is 6.6 1.? Acute inflammatory process in the RIGHT lower quadrant involving the cecum and the appendix. There is mild pericecal inflammatory stranding and submucosal edema. The appendix as seen on a prior examination from 08/14/2021 extends through this inflammatory process. Mild focal colitis. Secondary appendicitis should be considered. Additional mild colonic wall thickening and pericolonic inflammation to the sigmoid. Consider follow-up colonoscopy is patient's acute illness improves. Suspect colitis as the most likely etiology. Attestations Medical Necessity Statement*: Continue admission for assessment and management of hypovolemia, colitis, supratherapeutic medication possible medication toxicity in setting of XAVIER, endorgan injury with XAVIER, metabolic acidosis, UTI. Coding Level of Care Code Acute Code for [facility] Fwd Diagnoses Hypotension I95.9 Acute kidney injury N17.9 Colitis K52.9 Dehydration E86.0 Urinary tract infection N39.0 Diarrhea R19.7 H/O right knee surgery Z98.890 Obesity E66.9 Hypertension I10 Goals of care, counseling/discussion Z71.89 Chronic kidney disease N18.9 Non-insulin dependent type 2 diabetes mellitus E11.9 Metabolic acidosis E87.20
--- NOTE | 2022-08-19 12:25 | PM.PN ---
Subjective Subjective: feeling better. no abdominal pain, only a couple of episodes of diarrhea Vitals/I&O/Wt Last Vital Signs Temp 98.2 F 08/19/22 08:00 Pulse 78 08/19/22 11:58 Resp 16 08/19/22 11:58 BP 112/69 08/19/22 11:58 Pulse Ox 94 08/19/22 11:58 O2 Del Method 08/19/22 11:58 08/18/22 08/19/22 08/19/22 22:59 06:59 14:59 Intake Total 1050 / 2050 2147.5 / 4197.5 1050 / 1050 Output Total 300 / 300 500 / 800 Balance 750 / 1750 1647.5 / 3397.5 1050 / 1050 urine output today 1200 ml/6h Weight last 48 hrs Weight 104.326 kg Physical Exam Const: COMMON NORMALS: no acute distress and alert Extremity: COMMON NORMALS: no clubbing, cyanosis or edema Neuro: SENSORIUM/ORIENTATION: Yes alert Urinary Catheter Management: 2-way Urethral: Cath Placed During This Visit: yes Reason for Continuing Indwelling Catheter: Accurate Measurement of Urinary Output in Critically Ill Patients Urinary Catheter Date of Insertion: 08/18/22 Urinary Catheter Time of Insertion: 15:50 Data 08/19/22 05:43 08/19/22 05:43 Other Labs: Ca 8.4, Phos 3.7, Mg 1.9 LFTs normal, albumin 3 urine Na 77. uCr 272, FeNa < 1% Micro: Microbiology 08/18/22 15:15 Urine Culture - Preliminary Urine,Clean Catch 08/18/22 23:45 Stool Lactoferrin - Final Stool C.difficile Toxin B Gene (PCR) - Final Occult Blood (FIT) - Final 08/18/22 16:37 Blood Culture - Preliminary Blood SPECIMEN COLLECTED 08/18/22 16:36 Blood Culture - Preliminary Blood SPECIMEN COLLECTED CT Abd/Pel: Radiologist's impression: Adrenal glands: Normal. No mass. Right kidney: Nonobstructing 2 mm calcification mid kidney. No obstruction. No perinephric stranding. Left kidney: Normal size kidney. Several nonobstructing calcifications. No hydronephrosis or perinephric stranding. ABG Interpretation 1: 08/18/22 17:42 ABG pH 7.38 ABG pCO2 33.5 L ABG pO2 62.7 L ABG HCO3 19.8 L ABG Base Excess -4.5 L Other data: Seen and examined via telemedicine with assistance of RN at bedside A&P Assessment and plan (1) Acute kidney injury: Plan 1. Acute kidney injury due to volume depletion. Was taking ACEi, Hctz, possible meloxicam. Excellent urine output. Renal function improving. 2. Hypovolemic hyponatremia, improved 3. Metabolic acidosis, stable 4. Colitis, on IV antibiotic. No evidence of UTI 5. Bilateral renal calculi, not active issue Recommend: continue IVF hydration. Attestations Medical Necessity Statement*: see above Time Spent in Patient Care: 16 - 35 minutes Coding Level of Care Code Acute Code for [facility] Fwd Diagnoses Acute kidney injury N17.9
[2022-08-19 17:06] LABS: Glucose Point of Care 95 mg/dL (70-110)
[2022-08-19 20:48] LABS: Glucose Point of Care 125 mg/dL (70-110)
[2022-08-19] MEDS: atorvastatin 40 mg Tablet 20 MG PO (21:05)
[2022-08-19] MEDS: aspirin 81 mg EC Tablet PO (21:06)
[2022-08-19] MEDS: allopurinol 100 mg Tablet 200 MG PO (21:06)
[2022-08-20] VITALS: BP 105/62; PULSE 68; RESP 16; TEMP 36.8; O2SAT 97
[2022-08-20] MEDS: sodium chloride 0.9% 1,000 ML 150 ML IV ×2 (00:24→06:30)
[2022-08-20 02:03] LABS: Basophils % 0.2 %; Eosinophils % 0.6 %; Hematocrit 34.9 % (42.0-52.0); Hemoglobin 11.5 g/dL (11.7-16.6); Lymphocytes # 1.3 10^3/uL (0.8-4.8); Lymphocytes % 26.1 %; Mean Corpuscular Hemoglobin 30.6 pg (28.0-34.0); Mean Corpuscular Volume 92.8 fl (80-94); Mean Platelet Volume 9.7 fL (7.4-10.4); Monocytes # 0.7 10^3/uL (0.2-0.9); Monocytes % 13.1 %; Neutrophils # 3.05 10^3/uL (1.8-7.7); Neutrophils % 59.4 %; Nucleated Red Blood Cells % 0 %; Platelet Count 170 10^3/cmm (130-400); Red Blood Count 3.76 10^6/uL (4.1-5.3); Red Cell Distribution Width 13.1 % (12.1-15.1); White Blood Count 5.1 10^3/uL (4.0-10.0)
[2022-08-20 02:31] LABS: Anion Gap 15.4 (5-19); Blood Urea Nitrogen 24 mg/dL (8-23); Calcium 8.4 mg/dL (8.5-10.5); Carbon Dioxide 21 mmol/L (22-29); Chloride 104 mmol/L (98-107); Glomerular Filtration Rate 36.1 mL/min (90-130); Glucose 102 mg/dL (65-115); Osmolality Calculated 288 mOsm/kg (285-295); Potassium 3.4 mmol/L (3.5-5.1); Sodium 137 mmol/L (136-145)
[2022-08-20 03:48] VITALS: PULSE 63
[2022-08-20] MEDS: piperacillin-tazobactam 3.375 GM in sodium chloride 0.9% (plus) 50 ML IV (03:57)
[2022-08-20] MEDS: pantoprazole 40 mg SDV IVP (03:57)
[2022-08-20 04:00] VITALS: BP 106/66; PULSE 65; RESP 16; TEMP 36.6; O2SAT 97
[2022-08-20 06:36] LABS: Glucose Point of Care 102 mg/dL (70-110)
[2022-08-20 07:40] LABS: Glucose Point of Care 96 mg/dL (70-110)
--- NOTE | 2022-08-20 07:42 | PM.PN ---
Subjective Subjective: doing well Vitals/I&O/Wt Last Vital Signs Temp 97.9 F 08/20/22 04:00 Pulse 65 08/20/22 04:00 Resp 16 08/20/22 04:00 BP 106/66 08/20/22 04:00 Pulse Ox 97 08/20/22 04:00 O2 Del Method 08/20/22 04:00 08/19/22 08/20/22 08/20/22 22:59 06:59 14:59 Intake Total 1032.5 / 2202.5 1897.5 / 4100.0 Output Total 850 / 850 1200 / 2050 Balance 182.5 / 1352.5 697.5 / 2050.0 Weight last 48 hrs Weight 104.326 kg Physical Exam Urinary Catheter Management: 2-way Urethral: Cath Placed During This Visit: yes Reason for Continuing Indwelling Catheter: Other Urinary Catheter Date of Insertion: 08/18/22 Urinary Catheter Time of Insertion: 15:50 Data 08/20/22 01:40 08/20/22 01:40 Micro: Microbiology 08/18/22 16:37 Blood Culture - Preliminary Blood NEGATIVE TO DATE 08/18/22 16:36 Blood Culture - Preliminary Blood NEGATIVE TO DATE 08/18/22 23:45 Stool Lactoferrin - Final Stool Enteric Pathogens (PCR) - Final Parasite Antigen Panel - Final C.difficile Toxin B Gene (PCR) - Final Occult Blood (FIT) - Final 08/18/22 15:15 Urine Culture - Preliminary Urine,Clean Catch A&P Assessment and plan (1) Acute kidney injury: Plan 1. Acute kidney injury due to volume depletion. Was taking ACEi, Hctz, possible meloxicam. Excellent urine output. Renal function improving. 2. Hypovolemic hyponatremia, resolved 3. Metabolic acidosis, improved 4. Colitis, on IV antibiotic. No evidence of UTI 5. Bilateral renal calculi, not active issue 6. Hypokalemia Recommend: discontinue olmedo, replace KCL, discontinue IVF hydration. Discussed with hospitalist. Okay for discharge from renal standpoint. Attestations Medical Necessity Statement*: see above Time Spent in Patient Care: less than 15 minutes Coding Level of Care Code Acute Code for [facility] Fwd Diagnoses Acute kidney injury N17.9
[2022-08-20 07:47] VITALS: PULSE 65; O2SAT 97
[2022-08-20 08:00] VITALS: BP 111/66; PULSE 70; RESP 17; TEMP 36.6; O2SAT 96
[2022-08-20] MEDS: potassium chloride ER 20 mEq Tablet 40 MEQ PO (09:39)
[2022-08-20 12:09] VITALS: BP 111/66; PULSE 70; RESP 17; TEMP 36.6; O2SAT 96
[2022-08-20] MEDS: ciprofloxacin 500 mg Tablet 750 MG PO (12:17)
--- NOTE | 2022-08-20 12:23 | PM.DCS ---
Discharge Providers Date of Admission: 08/18/22 15:58 Date of Discharge: August 20, 2022 Attending Provider at Admission: Sachin Sierra MD Attending Provider at Discharge: Kingsley So Primary Care Provider: Toney Abrams MD Diagnoses at Discharge Discharge Diagnosis (1) Acute kidney injury: Status: Acute Reason for Visit Reason for Visit: N/V/D Hospital Course Hospital Course Pleasant 61-year-old female with history of HTN, DM2, CKD, trigeminal neuralgia, HLD, was admitted after presenting with fatigue, malaise, nausea diarrhea, decreased appetite, dizziness, starting on Monday. On presentation with XAVIER, creatinine up to 5.6, hypotensive, required fluid boluses during hospitalization with hypervolemia, with metabolic acidosis, on presentation also with findings of UTI by UA, although urine culture eventually returning unremarkable. Received ciprofloxacin course initially empirically also started on Zosyn. CT abdomen pelvis with acute inflammatory process in the right lower quadrant involving cecum and appendix, mild pericecal inflammatory stranding and submucosal edema. Appendix seen on prior examination from 2021 extends through this inflammatory process. Mild focal colitis. Secondary appendicitis considered. Additional mild colonic wall thickening and pericolic inflammation to the sigmoid. Consider follow-up colonoscopy once acute illness improves. Suspected colitis is most likely etiology. He was assessed by surgery, with his presentation thought to be secondary to urinary infection, colitis, not found requiring surgical intervention. He continues with IV hydration. Blood pressure medications were withheld. Renal function has been improving, creatinine initially down to 4 and today down to 1.9. He was cautiously trialed on clear liquids which he tolerated and today requested advance to GI soft diet. Stool studies were collected and were negative for C. difficile but with Salmonella DNA returning detected. He will complete antibiotic course with ciprofloxacin. Contacted lab to make sure it is reported to Department of Health as well. Did not have an obvious source of infection, denies any possible food contamination, getting any food outside his home, advised regarding infection risk, hand hygiene, food handling and safety and to test his well water. Given replacement for mild hypokalemia. Please reassess renal function, potassium, continued recovery from XAIVER, Salmonella infection. Reassess for safe resumption of EDUAR inhibitor with stabilization of blood pressures, renal function. He is asked to stop meloxicam. Avoid any NSAIDs going forward. Physical Exam Const: COMMON NORMALS: patient oriented x3 and alert GENERAL APPEARANCE: cooperative NUTRITIONAL APPEARANCE: overweight ORIENTATION/CONSCIOUSNESS: Yes awake HENMT: COMMON NORMALS: oropharynx normal Neck/C-Spine: COMMON NORMALS: no JVD Resp: COMMON NORMALS: normal respiratory effort and clear to auscultation bilaterally AUSCULTATION: clear to auscultation bilaterally Cardio: COMMON NORMALS: no JVD, regular rhythm, S1 normal heart sound present, S2 normal heart sound present and No murmurs present (Cardio) RHYTHM: regular rhythm HEART SOUNDS: S1 normal heart sound present and S2 normal heart sound present GI: COMMON NORMALS: Normal to inspection, nondistended, normoactive bowel sounds present, Soft to palpation and non-tender PALPATION: Yes Soft to palpation Extremity: COMMON NORMALS: no joint enlargement and no pedal edema Neuro: COMMON NORMALS: patient oriented x3 and moves all extremities SENSORIUM/ORIENTATION: Yes alert Skin: COMMON NORMALS: no rashes or lesions noted GENERAL SKIN EXAM: no rashes or lesions noted Urinary Catheter Management: 2-way Urethral: Cath Placed During This Visit: yes, but has since been removed by the nurse Reason for Continuing Indwelling Catheter: Decision to DC Catheter Urinary Catheter Date of Insertion: 08/18/22 Urinary Catheter Time of Insertion: 15:50 Date Urinary Catheter Removed: 08/20/22 Time Urinary Catheter Discontinued: 10:27 Discharge Data Studies Completed and Pending Completed Studies During Hospitalization Category Date Time Status CT abdomen pelvis wo con [id number] Stat Cat Scan 08/18/22 15:03 Completed XR chest 1V portable [id number] Stat Exams 08/18/22 13:19 Completed Pending at discharge Category Date Time Status Basic Metabolic Panel AM LABS Lab 08/21/22 04:00 Ordered Basic Metabolic Panel AM LABS Lab 08/22/22 04:00 Ordered Blood Culture Stat Lab 08/18/22 16:37 Results Complete Blood Count w/Auto AM LABS Lab 08/21/22 04:00 Ordered Complete Blood Count w/Auto AM LABS Lab 08/22/22 04:00 Ordered Maalaea Free Light Chains Urine Stat Lab 08/18/22 22:39 Received Lambda Light Chain, Free, Ur Routine Lab 08/18/22 22:39 Received Urine Protein Electrop Random Routine Lab 08/18/22 22:39 Received Radiology Impressions Chest X-Ray 08/18/22 13:19 Impression: Negative chest. Abdomen/Pelvis CT 08/18/22 15:03 IMPRESSION: 1. Acute inflammatory process in the RIGHT lower quadrant involving the cecum and the appendix. There is mild pericecal inflammatory stranding and submucosal edema. The appendix as seen on a prior examination from 08/14/2021 extends through this inflammatory process. Mild focal colitis. Secondary appendicitis should be considered. Additional mild colonic wall thickening and pericolonic inflammation to the sigmoid. Consider follow-up colonoscopy is patient's acute illness improves. Suspect colitis as the most likely etiology. 2. No renal obstruction. 3. Nonobstructing bilateral renal calculi. Laboratory Results WBC 5.1 10^3/uL (4.0-10.0) 08/20/22 01:40 RBC 3.76 10^6/uL (4.1-5.3) L 08/20/22 01:40 Hgb 11.5 g/dL (11.7-16.6) L 08/20/22 01:40 Hct 34.9 % (42.0-52.0) L 08/20/22 01:40 MCV 92.8 fl (80-94) 08/20/22 01:40 MCH 30.6 pg (28.0-34.0) 08/20/22 01:40 MCHC 33.0 g/dL (30.0-36.0) 08/20/22 01:40 RDW 13.1 % (12.1-15.1) 08/20/22 01:40 Plt Count 170 10^3/cmm (130-400) 08/20/22 01:40 MPV 9.7 fL (7.4-10.4) 08/20/22 01:40 Neut % (Auto) 59.4 % 08/20/22 01:40 Lymph % (Auto) 26.1 % 08/20/22 01:40 [facility] % (Auto) 13.1 % 08/20/22 01:40 Eos % (Auto) 0.6 % 08/20/22 01:40 Baso % (Auto) 0.2 % 08/20/22 01:40 Neut # (Auto) 3.05 10^3/uL (1.8-7.7) 08/20/22 01:40 Lymph # (Auto) 1.3 10^3/uL (0.8-4.8) 08/20/22 01:40 [facility] # (Auto) 0.7 10^3/uL (0.2-0.9) 08/20/22 01:40 Eos # (Auto) 0.0 10^3/uL (0.0-0.8) 08/20/22 01:40 Baso # (Auto) 0.0 10^3/uL (0.0-0.1) 08/20/22 01:40 Nucleated RBC % (auto) 0 % 08/20/22 01:40 Nucleated RBCs # 0.0 /100WBC 08/20/22 01:40 ESR 25 mm/hr (0-10) H 08/18/22 15:30 PT 14.90 SECONDS (12.1-14.9) 08/18/22 16:36 INR 1.14 (0.8-1.2) 08/18/22 16:36 Specimen Type Arterial 08/18/22 17:42 Sample Site Radial, left 08/18/22 17:42 ABG pH 7.38 (7.35-7.45) 08/18/22 17:42 ABG pCO2 33.5 mmHg (35-45) L 08/18/22 17:42 ABG pO2 62.7 mmHg (80.0-100.0) L 08/18/22 17:42 ABG HCO3 19.8 mmol/L (22-26) L 08/18/22 17:42 ABG Base Excess -4.5 mmol/L (-2.0-2.0) L 08/18/22 17:42 Jose Manuel Test Pos 08/18/22 17:42 Hematocrit 38.4 % (42-52) L 08/18/22 17:42 O2 Delivery Device Room air 08/18/22 17:42 [employer] It ID Yamil 08/18/22 17:42 Sodium 137 mmol/L (136-145) 08/20/22 01:40 Potassium 3.4 mmol/L (3.5-5.1) L 08/20/22 01:40 Chloride 104 mmol/L (98-107) 08/20/22 01:40 Carbon Dioxide 21 mmol/L (22-29) L 08/20/22 01:40 Anion Gap 15.4 (5-19) 08/20/22 01:40 BUN 24 mg/dL (8-23) H 08/20/22 01:40 Creatinine 1.9 mg/dL (0.7-1.2) H 08/20/22 01:40 GFR Calculation 36.1 mL/min (90-130) L 08/20/22 01:40 Glucose 102 mg/dL (65-115) 08/20/22 01:40 POC Glucose 96 mg/dL (70-110) 08/20/22 07:32 Estimat Average Glucose 143 08/18/22 15:30 Hemoglobin A1c 6.6 % (4.0-6.0) H 08/18/22 15:30 Calculated Osmolality 288 mOsm/kg (285-295) 08/20/22 01:40 Lactic Acid 1.1 mmol/L (0.5-2.2) 08/18/22 14:39 Uric Acid 10.7 mg/dL (3.4-7.0) H 08/18/22 16:57 Calcium 8.4 mg/dL (8.5-10.5) L 08/20/22 01:40 Phosphorus 3.7 mg/dL (2.5-4.5) 08/19/22 05:43 Magnesium 1.9 mg/dL (1.7-2.3) 08/19/22 05:43 Total Bilirubin 0.3 mg/dL (0.15-1.2) 08/19/22 05:43 AST 25 U/L (0-40) 08/19/22 05:43 ALT 22 U/L (0-41) 08/19/22 05:43 Alkaline Phosphatase 48 U/L (40-130) 08/19/22 05:43 Creatine Kinase 129 U/L (39-308) 08/18/22 16:57 Troponin T Baseline 25 ng/L (0-15) H 08/18/22 13:19 Troponin T 120 Minute 18.15 ng/L (0-15) H 08/18/22 16:57 Delta Troponin T -6.85 ABS# (0-10) L 08/18/22 16:57 Troponin T Hi Sens 6Hr 16.49 ng/L (0-15) H 08/18/22 20:03 Troponin T Hi Sens 6Hr Delta -8.51 ng/L (0-12) L 08/18/22 20:03 C-Reactive Protein 92.0 mg/L (0.0-4.9) H 08/18/22 16:57 Total Protein 5.7 g/dL (6.6-8.7) L D 08/19/22 05:43 Albumin 3.0 g/dL (3.5-5.2) L 08/19/22 05:43 Globulin 2.7 g/dL (1.3-4.6) 08/19/22 05:43 Triglycerides 216 mg/dL (0-150) H 08/18/22 16:57 Cholesterol 113 mg/dL (0-200) 08/18/22 16:57 LDL Cholesterol, Calc 49 mg/dL (50-129) L 08/18/22 16:57 HDL Cholesterol 21 mg/dL (60-100) L 08/18/22 16:57 LDL/HDL Ratio 2.33 RATIO (0.00-3.22) 08/18/22 16:57 Cholesterol/HDL Ratio 5.38 mg/dL (1.0-5.00) H 08/18/22 16:57 Lipase 43 U/L (13-60) 08/18/22 16:57 25-OH Vitamin D Total 27 ng/mL (30-100) L 08/19/22 05:43 Procalcitonin 1.51 ng/mL (0-0.5) H 08/18/22 16:57 TSH 0.95 uIU/mL (0.27-4.20) 08/18/22 16:57 Urine Color Yellow (Yellow) 08/18/22 15:15 Urine Appearance Cloudy (CLEAR) A 08/18/22 15:15 Urine pH 5 (5-7) 08/18/22 15:15 Ur Specific Logan 1.030 (1.005-1.030) 08/18/22 15:15 Urine Protein 2+ (Negative) H 08/18/22 15:15 Urine Glucose (UA) Trace (Normal) H 08/18/22 15:15 Urine Ketones 1+ (Negative) H 08/18/22 15:15 Urine Blood 2+ (Negative) H 08/18/22 15:15 Urine Nitrate Positive (Negative) H 08/18/22 15:15 Urine Bilirubin 1+ (Negative) H 08/18/22 15:15 Urine Urobilinogen Neg mg/dL (Negative) 08/18/22 15:15 Ur Leukocyte Esterase Trace (Negative) H 08/18/22 15:15 Urine RBC None /hpf (0-2) 08/18/22 15:15 Urine WBC None /hpf (0-5) 08/18/22 15:15 Ur Squamous Epith Cells 0-4 /hpf (0-5) H 08/18/22 15:15 Ur Transition Epith Cell 0-4 /hpf 08/18/22 15:15 Amorphous Sediment Not Reportable 08/18/22 15:15 Urine Bacteria 2+ /hpf (NONE) H 08/18/22 15:15 U Random Total Protein 59 mg/dL 08/18/22 18:05 Ur Random Sodium 77 mmol/L 08/18/22 18:05 Ur Random Potassium 22 mmol/L 08/18/22 18:05 Ur Random Chloride 33 mmol/L 08/18/22 18:05 Urine Creatinine 272 mg/dL (39-259) H 08/18/22 18:05 Influenza Type A Ag negative (Negative) 08/18/22 13:29 Influenza Type B Ag negative (Negative) 08/18/22 13:29 SARS-CoV-2 Ag (Rapid) negative (Negative) 08/18/22 13:29 Vitals Last Vital Signs Temp 97.8 F 08/20/22 12:09 Pulse 70 08/20/22 12:09 Resp 17 08/20/22 12:09 BP 111/66 08/20/22 12:09 Pulse Ox 96 08/20/22 12:09 O2 Del Method 08/20/22 08:00 Discharge Plan Discharge Patient Disposition: Home Condition: Stable Prescriptions: New ciprofloxacin HCl 750 mg tablet 750 mg PO BID Qty: 14 0RF potassium chloride 10 mEq tablet,ER particles/crystals 10 meq PO DAILY Qty: 7 0RF Continued allopurinol 100 mg tablet 200 mg PO BEDTIME aspirin [Braxton Low Dose Aspirin] 81 mg Tablet,Delayed Release (Dr/Ec) 81 mg PO BEDTIME tramadol 50 mg tablet 50 mg PO Q6H PRN (Reason: Pain) lovastatin 20 mg tablet 20 mg PO BEDTIME metformin 750 mg tablet extended release 24 hr 750 mg PO BEDTIME Discontinued meloxicam 15 mg tablet 15 mg PO DAILY PRN (Reason: Pain) hydrochlorothiazide 12.5 mg capsule 12.5 mg PO QAM lisinopril 40 mg tablet 40 mg PO BEDTIME Discharge Orders: Discharge Order (Routine); Ordered 08/20/22 Ordered By: Kingsley So Referrals: Toney Abrams MD [Primary Care Provider] - 08/26/22 10:15 am () Discharge Diet: Advance as tolerated, As Directed, Cardiac, Diabetic and Low Salt Discharge Activity: Increase activity as tolerated Patient Instructions: Ciprofloxacin (By mouth), Potassium Chloride (By mouth), Kidney Stones (GEN), Salmonella Infection (GEN), Food Poisoning (GEN), Opioid Safety Activity Restrictions/Additional Instructions: Complete antibiotic course for Salmonella infection. Follow-up with your primary provider for reassessment. Follow food safety recommendations and any announcements for any contaminated products or food items. Wash your hands. Bleach any areas that may come in contact with stool while having diarrhea. Have your well water tested. Discuss consideration of follow-up colonoscopy in 6 weeks with some focal imaging findings to exclude other conditions, exclude malignancy if you have not had any recent colonoscopy. Follow-up with your primary provider also for reassessment regarding acute kidney injury which has been improving. Continue to hold lisinopril, HCTZ for now until found safe to resume by your primary doctor. Please discontinue meloxicam and do not take any NSAIDs. Please have your primary provider recheck your potassium level at next visit as well. Follow-up with your primary doctor also regarding bilateral kidney stones. Maintain low-sodium diet. Avoid carbonated drinks. In case you pass a stone save it for analysis. Discharge Attestations Time Spent in Discharge Care*: greater than 30 min Quality Metrics Clinical Quality Measures [ No reported AMI, CVA or VTE this stay] Coding Level of Care Code Acute Code for [facility] Fwd Diagnoses Acute kidney injury N17.9
[2022-08-20 13:00] LABS: Creatinine, Random Urine 233 mg/dL (20-320); Protein, Total, Random 64 mg/dL (5-25); Protein/Creatinine Ratio 0.275 (0.025-0.148); Protein/Creatinine Ratio 275 mg/g creat (25-148)
[2022-08-23 10:13] LABS: Albumin,Urine Random 24 %; Alpha-1-Globulins Urine Random 5 %; Alpha-2-Globulins Urine Random 19 %; Beta-Globulin,Urine Random 30 %; Gamma Globulin,Urine Random 23 %
[2022-08-24 13:19] LABS: Lambda Light Chain, Free Ur 96.82 mg/L (<=3.79)
== END 2022-08-20 13:30 | disposition home or self-care (01) | DRG 868 ==
LOC: ER 14:49 → MEDSURG 15:58
PROVIDERS: Admitting Provider Family Medicine; Emergency Provider Emergency Medicine; PCP Family Medicine; Visit Provider Internal Medicine
DX: A02.8 Other specified salmonella infections (principal); E87.20 Acidosis, unspecified; N17.9 Acute kidney failure, unspecified; E11.22 Type 2 diabetes mellitus with diabetic chronic kidney disease; I12.9 Hypertensive chronic kidney disease with stage 1 through stage 4 chronic kidney disease, or unspecified chronic kidney disease; N18.9 Chronic kidney disease, unspecified; G50.0 Trigeminal neuralgia; I95.9 Hypotension, unspecified; E87.6 Hypokalemia; Z79.82 Long term (current) use of aspirin; Z79.891 Long term (current) use of opiate analgesic; Z79.84 Long term (current) use of oral hypoglycemic drugs; E86.0 Dehydration; E66.9 Obesity, unspecified; Z68.35 Body mass index [BMI] 35.0-35.9, adult; Z87.442 Personal history of urinary calculi; E78.5 Hyperlipidemia, unspecified
CPT/HCPCS: 36415; 36416; 36600; 51702; 71045; 74176; 80048; 80053; 80061; 81001; 82274; 82306; 82436; 82550; 82570; 82803; 82962; 83036; 83521; 83605; 83630; 83690; 83735; 83883; 84100; 84133; 84145; 84156; 84166; 84300; 84443; 84484; 84550; 85025; 85610; 85651; 86140; 86335; 87040; 87086; 87426; 87493; 87506; 87804; 93005; 94664; 99254; 99285; C9113; J2543; J7030; J7040; J7120